=== PATIENT | male | born 1990 | race Two or more races ===

== ENCOUNTER → 2019-02-23 | Emergency (ER) | payer OTHER ==
[~2019-02-23] VITALS: Ht 167.6 cm; Wt 77.1 kg
== END | disposition left against medical advice (07) ==
LOC: ER 02:17
DX: Z53.20 Procedure and treatment not carried out because of patient's decision for unspecified reasons (principal)

== ENCOUNTER 2021-06-17 20:51 | Emergency (ER) | payer OTHER ==
[~2021-06-17] VITALS: Ht 152.4 cm; Wt 72.6 kg
== END 2021-06-18 00:32 | disposition home or self-care (01) ==
LOC: ER 20:51
DX: U07.1 COVID-19 (principal)

== ENCOUNTER 2021-07-26 08:00 | Outpatient (CLI) | payer OTHER | END 2021-07-26 08:30 | disposition home or self-care (01) | LOC: PPH VACUNA 08:00 | PROVIDERS: ATTEND Emergency Medicine Pediatric Emergency Medicine | DX: Z23 Encounter for immunization (principal) ==